=== PATIENT | female | born 1950 | race Caucasian/White ===

== ENCOUNTER 2016-07-24 15:04 | Emergency (ER) | payer MEDICARE, OTHER ==
[~2016-07-24] VITALS: Ht 167.6 cm; Wt 99.8 kg
[~2016-07-24 15:04] MED LIST: ACETAMINOPHEN500 M3 PO; AMLODIPINE10 MG; APAP/OXYCODONE1 TA1 PO; ENDOCORT; LOVENOX 4040 MG/0.4 SC; MILK OF MA400 MG/51 PO; URBAN 360 ML360 ML PO
--- NOTE | 2016-07-24 15:38 | Urgent Treatment Center Report ---
History of Present Issue Date/Time Seen by Provider 07/24/16 1529 Visit Reason Pt arrived:Wheelchair Presenting Problem:PT C/O RIGHT FOOT AND ANKLE PAIN. PT STATES THAT SHE MISSED A STEP AND TWISTED HER ANKLE/FOOT Location if Accident:Home Onset of symptoms date/time:/ or onset unknown for:MEDICAL HX UNKNOWN Have you (or family members/close friends) recently traveled outside the [place]? N If Yes, where/when: Have you had exposure to infectious disease within the past month? TB? Other? Specify: Patient state that she was coming down the steps when she missed a step and fell and twisted her foot and ankle States that she is having some pain and swelling on the top of her foot and her ankle area. State that she fell around 30minutes to an hour ago ALLERGIES Coded Allergies: Penicillins (Mild, 07/24/16) Home Medications Active Scripts Alum & Mag Hydrox-Simethicone (Urban 360 Ml) 30 ML PO QIDP PRN 14 Days Prov: 08/23/10 ENOXAPARIN SODIUM (Lovenox) 40 MG SC DAILY 14 Days Prov: 08/23/10 Magnesium Hydroxide (Milk Of Magnesia U/D 30ML) 30 ML PO DAILYP PRN 14 Days Prov: 08/23/10 Acetaminophen (Acetaminophen Extra Strength) 1,000 MG PO Q6HP PRN 14 Days Prov: 08/23/10 Reported Medications Amlodipine Besylate (Amlodipine) History Medical History General CAD? No Angina: No [place]: No Hypertension? Yes Hyperlipidemia? No CHF? No DVT? No PE? No COPD? No Asthma? No Anemia? No GERD? No Gastric ulcers? No GI Bleed? No Hernia? No Thyroid Problems? No Hypothyroidism? No CVA? No Seizures? No Diabetes? No Renal Insuffiency? No UTI? No Stones? No BPH? No GB Disease: No Nephritic Syndrome? No Asplenia? No Hepatitis? No Sickle Cell Disease? No Arthritis? No Migraines? No Cataracts? No Glaucoma? No MRSA? No HIV? No TB? No Anxiety? No Depression? No Cancer? No More? No Immunization HX DT/Tetanus UNKNOWN Flu LAST YEAR Pneumonia NEVER Surgical Hx Previous Surgery?Y CYST REMOVED CAPAL TUNAL MARLA. HAND Family History Family HX Diabetes Yes CAD Yes Hypertension Yes Hyperlipidemia Yes Cancer Yes TB No Social History Smoking Hx Smoker: Never Smoker Tobacco: No Alcohol Alcohol: No Review of Systems All Other Systems Reviewed and Negative Comment Pain and swelling in right ankle after missing stairs and falling twisting right foot and ankle Physical Exam Vital Signs Vital Signs Date Time Temp Pulse Resp B/P Pulse O2 O2 Flow FiO2 Ox Delivery Rate 07/24 1513 98.0 77 18 86/59 99 General Appearance normal appearance, WD/WN, no apparent distress Respiratory Status Yes: trachea midline, chest symmetrical, non tender chest. No: respiratory distress. 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 No Results/Orders Orders Procedure Date/time Status UTC STABILIZE JOINT/AREA 07/24 1616 Active FOOT-RT-3 VIEWS 07/24 1514 Active ANKLE-RT-3 VIEWS 07/24 1514 Active XRAY/CT/US XRAY/CT/US XRAY ankle, foot XR interpretation by reviewed by me Xray Results normal/NAD, no fracture seen Comment Patient placed in boot cast given crutches and advised to follow up with Orthopedics in 2-3 days if no improvement or worsening of symptoms Departure Departure Time of Disposition 1536 Disposition DC Home or Self Care(routine) Clinical Impression Primary Impression: Ankle sprain Qualifiers: Encounter type: initial encounter Involved ligament of ankle: unspecified ligament Laterality: right Qualified Code: S93.401A - Sprain of unspecified ligament of right ankle, initial encounter Condition STABLE Referrals Kami LEAL,Stevie WILCOX MD, MARIAN ANDREWS Patient Instructions How To Perform RICE (Rest, Ice, Compress, Elevate), How to Use a Walking Boot, How to Use Crutches Additional Instructions *weight bearing as tolerated *RICE, Rest the extremity, Ice 15-20 minutes 3-4 times daily, Compress- wear the jose wrap, Elevate the extremity when at rest *Jose wrap is for support and help control swelling, use it except in the shower. Be sure that is not to tight but not to loose either *Elevate as discussed as much as possible to help reduce swelling and pain *Ibuprofen 600-800mg every 6-8 hours as needed for pain an inflammation. If need something more can take Tylenol in between doses of Ibuprofen to help Immediately follow up for new or worsening of symptoms, or no noticeable improvement over the nex 3-5 days Follow up with family doctor if no improvement 2-3 days Return if needed Follow up with Orthopedics in 2-3 days if worsening of symptoms or no improvement in symptoms Discharge Counseling Counseled pt/family regarding diagnosis, test results, medications/RX, home care, follow up needs Prescriptions Current Visit Scripts Ibuprofen (Ibuprofen 800MG) 800 MG PO QIDP PRN pain #30 TAB at 8669
[2016-07-24] MEDS ORDERED: IBUPROFEN800 MG PO (16:18)
[2016-07-24 16:23] VITALS: BP 86/59
--- OUTSIDE RECORDS SUMMARY | 2016-07-24 16:33 | External Medical Summary Rpt ---
Author Author [employer] Enriquez, [employer] Organization [employer] Address Unknown Phone Unavailable
--- OUTSIDE RECORDS SUMMARY | 2016-07-24 16:33 | External Medical Summary Rpt ---
Author Author , Organization [employer] Address Unknown Phone Unavailable Purpose Continuity of Care Document - through 2016
--- OUTSIDE RECORDS SUMMARY | 2016-07-24 16:33 | External Medical Summary Rpt ---
Demographics Preferred Language Palestinian Marital Status Unknown Mosque Affiliation Unknown Race Unknown Ethnic Group Unknown Author Author , Organization [employer] Address Unknown Phone Unavailable Purpose Continuity of Care Document - through 2016 Immunization No patient found.
--- OUTSIDE RECORDS SUMMARY | 2016-07-24 16:33 | External Medical Summary Rpt ---
Author Author [employer] Organization [employer] Address Unknown Phone Unavailable Purpose Continuity of Care Document - through 2016
--- OUTSIDE RECORDS SUMMARY | 2016-07-24 16:33 | External Medical Summary Rpt ---
Demographics Preferred Language Indian Marital Status Unknown Methodist Affiliation Unknown Race Unknown Ethnic Group Unknown Author Author , Organization [employer] Address Unknown Phone Unavailable Purpose Continuity of Care Document - through 2016 Immunization No patient found.
--- OUTSIDE RECORDS SUMMARY | 2016-07-24 16:33 | External Medical Summary Rpt ---
Demographics Preferred Language Bruneian Marital Status Unknown Restorationism Affiliation Unknown Race Unknown Ethnic Group Unknown Author Author , Organization [employer] Address Unknown Phone Unavailable Purpose Continuity of Care Document - through 2016 Immunization No patient found.
--- OUTSIDE RECORDS SUMMARY | 2016-07-24 16:33 | External Medical Summary Rpt ---
Demographics Preferred Language Croatian Marital Status Unknown Adventism Affiliation Unknown Race Unknown Ethnic Group Unknown Author Author , Organization [employer] Address Unknown Phone Unavailable Purpose Continuity of Care Document - through 2016 Immunization No patient found.
--- NOTE | 2016-07-24 16:43 | RADIOLOGY REPORT PS360 ---
ANKLE-RT-3 VIEWS, FOOT-RT-3 VIEWS Ordering Physician: CHAYITO HARRISON APRN Patient Age: 65 years: Female HISTORY: MISSED A STEP AND TWISTED HER ANKLE/FOOTfoot pain. Ankle pain medial aspect TECHNIQUE: 3 views right ankle 3 views right foot ========= ----RIGHT ANKLE 3 VIEWS No acute ankle fracture evident. \ COMPARISON made to right lower leg radiograph 07/14/2015 which includes the ankle. This prior study helpful as it demonstrates stable appearance at the tip of the medial malleolus. On today's study there is a stable a corticated osseous fragment at tip of medial malleolus. Unchanged This is old stable finding unchanged since 07/14/2015. With No acute fracture here. 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 There is prominent soft tissue ankle most evident overlying medial ankle and foot Lateral malleolus intact,. Posterior malleolus intact. Dome of talus intact. Ankle mortise intact. Note curious oblique line projected over the first cuneiform. This hypoechoic abnormality is not seen on the subsequent right foot films. I suspect it is the medial image of the intermediate cuneiform yielding this overlapping lucent line. (Intermediate cuneiforms articulates with the base of the second MT) RIGHT FOOT 3 views -------- comparison is made to right foot radiograph 07/14/2015. The metatarsals intact. The toes are intact. On right foot studies a cuneiform bones appear intact. Attention is directed to the first and second cuneiform and appear unchanged since prior studies. However there is persistent pain in this specific to this area may want to consider follow-up with orthopedics and potential CT foot to further evaluate. IMPRESSION-------- 1. Right ankle. No acute fracture at ankle. Accessory ossicle tip medial malleolus unchanged since prior study 2015 2. Right foot appears intact with no acute fracture. 3. Generous soft tissue swelling- most evident about medial ankle and continuing into the foot. Note: Curious line projected over the first cuneiform on oblique view of ankle I believe is merely related to the medial margin of intermediate cuneiform and not of significance. However if persistent pain at this area of the right foot, then consider orthopedic follow-up.
== END 2016-07-24 16:25 | disposition home or self-care (01) ==
LOC: UTC 15:04
PROC: 2W3SX1Z Immobilization of Right Foot using Splint (ICD-10-PCS; principal; 2016-07-24)
DX: S93.401A Sprain of unspecified ligament of right ankle, initial encounter (principal); I10 Essential (primary) hypertension; W10.9XXA Fall (on) (from) unspecified stairs and steps, initial encounter; Y92.009 Unspecified place in unspecified non-institutional (private) residence as the place of occurrence of the external cause